=== PATIENT | female | born 1990 | race Caucasian/White ===

== ENCOUNTER 2017-05-08 12:41 | Emergency (ER) | payer OTHER ==
[~2017-05-08] VITALS: Ht 152.4 cm; Wt 68.9 kg
[~2017-05-08 12:41] MED LIST: CLARITIN10 MG
[2017-05-08] MEDS ORDERED: OSEL75CA (13:22)
[2017-05-08] MEDS ORDERED: ZITHROMAX TRI-500 MG (13:23)
[2017-05-08] MEDS ORDERED: MUCINEX600 MG (13:23)
== END 2017-05-08 17:27 | disposition home or self-care (01) ==
LOC: ER 12:41
DX: B34.9 Viral infection, unspecified (principal); J11.1 Influenza due to unidentified influenza virus with other respiratory manifestations

== ENCOUNTER 2017-09-10 12:43 | Inpatient (IN) | payer OTHER ==
[~2017-09-10] VITALS: Ht 149.9 cm; Wt 176.0 kg
[~2017-09-10 12:43] MED LIST changes: +MUCINEX600 MG; +OSEL75CA; +ZITHROMAX TRI-500 MG
[2017-09-10] MEDS ORDERED: PRENATAL TABLE1 EAC1 PO (12:58)
[2017-09-10] MEDS ORDERED: IRON325 MG PO (12:59)
== END 2017-09-13 10:36 | disposition home or self-care (01) | DRG 766 ==
LOC: LDR 12:43 → O/R 14:37 → OB/GYN 15:39
PROVIDERS: Specialist
PROC: 4A1HXCZ Monitoring of Products of Conception, Cardiac Rate, External Approach (ICD-10-PCS; 2017-09-10)
PROC: 10D00Z1 Extraction of Products of Conception, Low, Open Approach (ICD-10-PCS; principal; 2017-09-10 13:00)
DX: O62.1 Secondary uterine inertia (principal); Z3A.38 38 weeks gestation of pregnancy; Z37.0 Single live birth

== ENCOUNTER 2022-04-12 17:07 | Emergency (ER) | payer OTHER ==
[~2022-04-12] VITALS: Ht 149.9 cm; Wt 62.6 kg
[~2022-04-12 17:07] MED LIST changes: +IRON325 MG PO; +PRENATAL TABLE1 EAC1 PO
== END 2022-04-12 20:41 | disposition home or self-care (01) ==
LOC: ER 17:07
DX: S29.9XXA Unspecified injury of thorax, initial encounter (principal); V49.9XXA Car occupant (driver) (passenger) injured in unspecified traffic accident, initial encounter; Y93.9 Activity, unspecified; Y92.89 Other specified places as the place of occurrence of the external cause; Y99.9 Unspecified external cause status; S89.91XA Unspecified injury of right lower leg, initial encounter; S69.92XA Unspecified injury of left wrist, hand and finger(s), initial encounter